=== PATIENT | male | born 1985 | race Caucasian/White ===

== ENCOUNTER 2019-12-11 23:20 | Emergency (ER) | payer SELFPAY ==
--- NOTE | ~2019-12-11 | CT_ITS ---
EXAMINATION: CT brain wo con DATE: 12/12/2019 00:39 INDICATION: Loss of consciousness. TECHNIQUE: Computed tomography (CT) of the head was performed without intravenous contrast. The mA wa s adjusted according to patient size. Iterative reconstruction technique was employed. The dose-lengt h product was 681.00 mGy-cm. COMPARISON: None FINDINGS: There is no intracranial hemorrhage, acute infarction, or abnormal intracranial mass lesion . The ventricles are normal in size. The orbits are normal. There is mucosal thickening in the parana marion sinuses. The mastoid air cells are normal. IMPRESSION: 1. Normal brain. Reviewed, dictated and finalized at location [facility] [employer] IMPRESSION: 1. Normal brain.
--- NOTE | 2019-12-11 23:26 | ED.ALCOHOL ---
HPI - Alcohol General Chief Complaint: Alcohol Stated Complaint: ?loc, etoh
[2019-12-11 23:30] VITALS: BP 142/91; PULSE 132; RESP 16; TEMP 36.5; O2SAT 95
--- NOTE | 2019-12-11 23:33 | ECG_ITS ---
Measurements Intervals [place] Rate: 120 P: NM: 0 QRS: 72 QRSD: 97 T: 226 QT: 315 QTc: 447 Interpretive Statements SINUS OR ATRIAL TACHYCARDIA BORDERLINE ST-T WAVE ABNORMALITY- INF/LAT LEADS BASELINE ARTIFACT- I, II, AVR, AVL, AVF ABNORMAL ECG Electronically Signed On 12-12-2019 7:06:52 [employer] by Michael Pennington D.O.
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
[2019-12-11] MEDS: SODIUM CHLORIDE 0.9% IV 2,000 ML 999 ML IV CONT (23:45)
[2019-12-11] MEDS: ONDANSETRON INJ 4 MG/2 ML VIAL IV PUSH (23:45)
[2019-12-11 23:50] LABS: Basophils Percent Auto 0.3 % (0.2-1.2); Eosinophils Percent Auto 0.1 % (0-4.4); Hematocrit 45.5 % (42.0-52.0); Hemoglobin 15.3 g/dL (14.0-18.0); Immature Granulocyte Absolute 0.01 K/mm3 (0.00-0.031); Immature Granulocyte Percent A 0.1 % (0-0.5); Lymphocytes Absolute Auto 1.77 K/mm3 (0.9-3.2); Lymphocytes Percent Auto 24.2 % (18.3-44.2); Mean Corpuscular HGB Conc 33.6 g/dl (32-36); Mean Corpuscular Hemoglobin 31.6 pg (26-34); Mean Platelet Volume 10.6 fl (7.4-10.4); Monocytes Absolute Auto 0.5 K/mm3 (0.1-0.6); Monocytes Percent Auto 6.3 % (2.6-8.5); Neutrophils Absolute Auto 5.1 K/mm3 (1.3-6.7); Platelet Count Result 181 k/mm3 (150-375); Red Blood Count 4.84 M/mm3 (4.6-6.20); Red Cell Distribution Width 12.5 % (11.5-14.5); White Blood Count 7.3 K/mm3 (4.5-10.0)
[2019-12-12] VITALS (8 sets, daily range): BP systolic 109–148; BP diastolic 55–96; PULSE 78–115; RESP 14–29; O2SAT 94–98
[2019-12-12] MEDS: LORAZEPAM INJ 2 MG/ML VIAL IV PUSH
[2019-12-12 00:02] LABS: INR 0.9; Prothrombin Time 12.1 Seconds (11.1-14.7)
[2019-12-12 00:03] LABS: Partial Thromboplastin Time 23.9 SECONDS (22.3-36.8)
[2019-12-12 00:06] LABS: Alanine Aminotransferase 45 U/L (4-50); Albumin Level 5.1 g/dL (3.5-5.1); Alkaline Phosphatase 67 U/L (38-126); Aspartate Amino Transferase 36 U/L (17-59); Bilirubin,Total 0.4 mg/dL (0.2-1.3); Blood Urea Nitrogen 10 mg/dL (9-20); Calcium 8.7 mg/dL (8.4-10.2); Carbon Dioxide 23 mmol/L (22-30); Chloride 99 mmol/L (98-107); Creatine Kinase 481 U/L (55-170); Estimated Glomerular Filt Rate > 60; Glucose 108 mg/dL (75-110); Sodium 142 mmol/L (137-145)
[2019-12-12 00:12] LABS: Acetaminophen < 10 ug/mL (10-30); Ethanol 279 mg/dL (<10); Salicylate < 1.0 mg/dL (2-20)
[2019-12-12] MEDS: HALOPERIDOL LACTATE 5 MG/ML VIAL IM (00:16)
[2019-12-12 00:17] LABS: Troponin I < 0.012 ng/mL (0.000-0.034)
[2019-12-12 01:07] LABS: Add Urine Microscopic? NO; Appearance Urine Clear (Clear); Bilirubin Urine Negative (Negative); Blood Urine Negative (Negative); Color Urine Straw (Yellow); Glucose Urine UA Negative (Negative); Ketones Urine Negative (Negative); Leukocyte Esterase Ur Negative LEU/UL (Negative); Nitrate Urine Negative (Negative); Protein Urine Negative (Negative); Specific Grav Ur 1.008 (1.001-1.035); Urobilinogen Urine Negative mg/dL (<2.0)
[2019-12-12 01:16] LABS: Amphetamine Screen Urine Negative (Negative); Barbiturate Screen Urine Negative (Negative); Benzodiazepines Screen Urine Negative (Negative); Cannabinoid Screen Urine Positive (Negative); Cocaine Screen Urine Negative (Negative); Methadone Screen Urine Negative (Negative); Opiate Screen Urine Negative (Negative); Phencyclidine Screen Urine Negative (Negative)
--- NOTE | 2019-12-12 02:49 | ECG_ITS ---
Measurements Intervals [place] Rate: 100 P: 52 MI: 174 QRS: 71 QRSD: 94 T: 29 QT: 351 QTc: 455 Interpretive Statements SINUS TACHYCARDIA BASELINE ARTIFACT- II, III, AVR, AVL, AVF, V1-V2 BORDERLINE ECG Electronically Signed On 12-12-2019 7:09:30 [employer]ICKER OPERATOR by Michael Pennington D.O.
[2019-12-12 03:33] LABS: Troponin I < 0.012 ng/mL (0.000-0.034)
--- NOTE | 2019-12-12 07:10 | PC.NURSE ---
Bedside report received from Obdulia Gonzalez RN. Pt awakens easily, states I drank way too much last night . Breakfast tray to bedside.
--- NOTE | 2019-12-12 07:23 | PC.NURSE ---
Pt remains asleep despite breakfast tray being delivered and at bedside. Made aware of need to eat prior to discharge and needing to call someone for a ride home. Reports does not have his cell phone but instructed will give him assistance as needed with calling after he eats.
--- NOTE | 2019-12-12 07:47 | PC.NURSE ---
Pt currently sitting up and eating breakfast tray.
--- NOTE | 2019-12-12 08:27 | PC.NURSE ---
Call to Jade pompa mother of pt's children @ [phone]. Message left to return call to [facility].
--- NOTE | 2019-12-12 08:46 | PC.NURSE ---
Jade calls back and states she will be to the hospital in approx 1 hour to give the patient a ride home. Pt updated.
--- NOTE | 2019-12-12 09:30 | PC.NURSE ---
Pt's father here to give patient a ride home. Pt out of bed, ambulatory. Refuses w/c to exit.
--- NOTE | 2019-12-18 01:31 | PC.NURSE ---
LATE ENTRY This note is being entered to document information to the patient's record. The following information was omitted on [12/12/2019], ns stop time 0135 by [[email or web address] martínez].
== END 2019-12-12 09:00 | disposition home or self-care (01) ==
PROVIDERS: Emergency Provider Emergency Medicine
DX: F10.920 Alcohol use, unspecified with intoxication, uncomplicated (principal); Y90.8 Blood alcohol level of 240 mg/100 ml or more
CPT/HCPCS: 36415; 70450; 80053; 80307; 81003; 82550; 84484; 85025; 85610; 85730; 93005; 96361; 96372; 96374; 96375; 99284; J1200; J1630; J2060; J2405; J7030

== ENCOUNTER 2024-06-25 11:58 | Emergency (ER) | payer MEDICAID, SELFPAY ==
[2024-06-25 12:08] VITALS: BP 162/107; PULSE 127; RESP 18; TEMP 36.7; O2SAT 94
[2024-06-25 12:18] VITALS: BP 162/103; PULSE 116; RESP 18; O2SAT 94
[2024-06-25] MEDS: LORazepam INJ (*CRX) 2 MG/ML VIAL 1 MG IV PUSH (12:38)
[2024-06-25 12:52] LABS: Basophils Percent Auto 0.8 % (0.2-1.2); Eosinophils Absolute Auto 0.1 K/mm3 (0-0.3); Eosinophils Percent Auto 1.2 % (0-4.4); Hematocrit 41.1 % (42.0-52.0); Hemoglobin 13.7 g/dL (14.0-18.0); Immature Granulocyte Absolute 0.02 K/mm3 (0.00-0.031); Immature Granulocyte Percent A 0.4 % (0-0.5); Lymphocytes Absolute Auto 1.33 K/mm3 (0.9-3.2); Lymphocytes Percent Auto 27.3 % (18.3-44.2); Mean Corpuscular HGB Conc 33.3 g/dl (32-36); Mean Corpuscular Hemoglobin 32.8 pg (26-34); Mean Corpuscular Volume 98.3 fl (80-100); Mean Platelet Volume 9.8 fl (7.4-10.4); Monocytes Absolute Auto 0.2 K/mm3 (0.1-0.6); Monocytes Percent Auto 4.3 % (2.6-8.5); Neutrophils Absolute Auto 3.2 K/mm3 (1.3-6.7); Platelet Count Result 185 k/mm3 (150-375); Red Blood Count 4.18 M/mm3 (4.6-6.20); Red Cell Distribution Width 13.9 % (11.5-14.5); White Blood Count 4.9 K/mm3 (4.5-10.0)
[2024-06-25 13:04] LABS: INR 0.9; Prothrombin Time 13.1 Seconds (11.1-14.7)
[2024-06-25 13:05] LABS: Partial Thromboplastin Time 25.9 Seconds (22.3-36.8)
[2024-06-25 13:09] LABS: Alanine Aminotransferase 38 U/L (6-50); Albumin Level 4.4 g/dL (3.5-5.1); Alkaline Phosphatase 64 U/L (38-126); Anion Gap 14 mmol/L (4-12); Aspartate Amino Transferase 37 U/L (17-59); Bilirubin,Total 0.3 mg/dL (0.2-1.3); Blood Urea Nitrogen 9 mg/dL (9-20); Calcium 8.1 mg/dL (8.4-10.2); Carbon Dioxide 26 mmol/L (22-30); Chloride 107 mmol/L (98-107); Estimated CRCL calculation 101 ml/min; Estimated Glomerular Filt Rate > 60; Glucose 116 mg/dL (65-110); Lipase 58 U/L (23-300); Potassium 3.7 mmol/L (3.4-5.0); Sodium 147 mmol/L (137-145)
[2024-06-25 13:19] VITALS: O2SAT 64
[2024-06-25 13:20] VITALS: O2SAT 98
[2024-06-25 13:32] LABS: Ethanol 426 mg/dL (<10)
--- NOTE | 2024-06-25 17:28 | PC.NURSE ---
pt found standing in his doorway. Instructed pt that he needed to return to his room to prevent him from falling. pt out of room again, pt removed his own IV. Instructed pt again to return to his room and stretcher to prevent him from falling.
--- NOTE | 2024-06-25 18:13 | PC.NURSE ---
Patient awake, eating, but still acting intoxicated. I asked if the patient would like me to call his mom who is listed as his emergency contact in his chart. patient states god bless, leave that poor woman alone
--- NOTE | 2024-06-25 18:23 | PC.NURSE ---
patient is having a lunch tray at this time, patient is conversing and being cooperative. patient states I'm sobering up more by the minute
[2024-06-25 19:00] VITALS: BP 138/94; PULSE 98; RESP 16; TEMP 36.6; O2SAT 98
--- NOTE | 2024-06-25 19:09 | PC.NURSE ---
Patient agreeable to let me call his mom- contacted the phone number i have listed for the patients mom and another contact. Left a message to return the phone call.
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
--- NOTE | 2024-06-25 20:05 | PC.NURSE ---
Dad of patient called in response to the message left. patient dad will be coming to get him.
== END 2024-06-25 20:34 | disposition home or self-care (01) ==
PROVIDERS: Emergency Provider Emergency Medicine
DX: F10.129 Alcohol abuse with intoxication, unspecified (principal); Y90.8 Blood alcohol level of 240 mg/100 ml or more
CPT/HCPCS: 36415; 80053; 80307; 83690; 85025; 85610; 85730; 96374; 99284; J2060